=== PATIENT | female | born 1940 | race Caucasian/White ===

== ENCOUNTER 2018-03-01 17:11 | Inpatient (IN) | payer OTHER ==
[~2018-03-01] VITALS: Ht 172.7 cm; Wt 90.7 kg
--- NOTE | ~2018-03-01 | EKG ---
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
[2018-03-01 17:35] VITALS: BP 113/62
[2018-03-01 18:50] LABS: ABSOLUTE NEUTROPHILS 3.1 thou/uL (1.4-8.2); EOSINOPHILS 1.2 % (0.0-3.0); HEMATOCRIT 42.3 % (37.0-47.0); HEMOGLOBIN 14.4 gm/dL (12.0-15.0); LYMPHOCYTES 21.5 % (24.0-44.0); MCH 32.3 pg (26.0-34.0); MCHC 33.9 g/dL (28.0-37.0); MCV 95.1 fL (80.0-100.0); MONOCYTES 7.3 % (1.0-8.0); RBC 4.44 mil/uL (4.20-5.00); RDW 14.3 % (10.5-14.5); WBC 4.6 thou/uL (4.0-11.0)
[2018-03-01 18:57] LABS: ANION GAP 7 mmol/L (7-16); BUN 14 mg/dL (7-18); CALCIUM 8.7 mg/dL (8.5-10.1); CHLORIDE 108 mmol/L (98-107); CO2 27 mmol/L (21-32); GLUCOSE 88 mg/dL (74-106); SODIUM 142 mmol/L (136-145)
[2018-03-01 19:06] LABS: ALBUMIN 3.6 g/dL (3.4-5.0); SGOT 49 U/L (15-37); SGPT 51 U/L (30-65); TOTAL PROTEIN 7.5 g/dL (6.4-8.2); TROPONIN-I < 0.04 ng/mL (<0.06)
[2018-03-01 19:16] LABS: LARGE PLATELETS FEW; PLATELET COUNT 68 thou/uL (150-400)
[2018-03-01 20:57] VITALS: BP 124/66
[2018-03-01] MEDS ORDERED: XANAX 0.25 MG0.25 MG PO (21:53)
[2018-03-01] MEDS ORDERED: ALDACTONE50 MG PO (21:54)
[2018-03-01] MEDS ORDERED: KEPPRA 500 MG500 M1 PO (21:55)
[2018-03-01] MEDS ORDERED: ESTRADIOL42.5 GM VAG (21:56)
[2018-03-01] MEDS ORDERED: NOVOLOG FL100 UNIT/M SUBQ (21:57)
[2018-03-01] MEDS ORDERED: TOPROL XL25 MG PO (21:58)
[2018-03-01] MEDS ORDERED: XIFAXAN550 M1 PO (21:59)
[2018-03-01] MEDS ORDERED: TOUJEO SOL300 UNIT/1 SUBQ (22:00)
[2018-03-01] MEDS ORDERED: SYNTHROID100 MC1 PO (22:00)
[2018-03-01 22:02] VITALS: BP 108/58
[2018-03-01] MEDS ORDERED: SIMVASTATIN10 MG PO (22:03)
[2018-03-01] MEDS ORDERED: LASIX 20 MG TAB20 MG PO (22:05)
[2018-03-01] MEDS ORDERED: KLOR-CON 1010 MEQ PO (22:05)
[2018-03-01] MEDS ORDERED: FARXIGA5 MG PO (22:08)
[2018-03-01] MEDS ORDERED: JARDIANCE10 MG PO (22:10)
[2018-03-01] MEDS ORDERED: NYSTATIN15 G3 TOP (22:12)
[2018-03-01] MEDS ORDERED: ALBUTEROL2.5 MG/31 INH (22:13)
[2018-03-01] MEDS ORDERED: CETIRIZINE HCL5 MG PO (22:15)
[2018-03-01] MEDS ORDERED: ZINC50 M1 PO (22:16)
[2018-03-01] MEDS ORDERED: TYLENOL325 MG PO (22:17)
[2018-03-01] MEDS ORDERED: TYLENOL EXTRA500 MG PO (22:18)
[2018-03-01] MEDS ORDERED: ANTIVERT25 MG PO (22:19)
[2018-03-01] MEDS ORDERED: PERCOCET PO (22:21)
[2018-03-01] MEDS ORDERED: LACTULOSE10 GM/152 PO (22:22)
[2018-03-02 01:34] LABS: URINE BILIRUBIN NEGATIVE (Negative); URINE BLOOD NEGATIVE (Negative); URINE CLARITY CLEAR; URINE COLOR YELLOW; URINE GLUCOSE-RANDOM* 3+ (Negative); URINE KETONES NEGATIVE (Negative); URINE NITRITE-REFLEX NEGATIVE (Negative); URINE PROTEIN (DIPSTICK) NEGATIVE (Negative); URINE UROBILINOGEN 0.2 E.U./dl (0.2-1.0)
[2018-03-02 01:35] LABS: URINE LEUKOCYTES-REFLEX TRACE (Negative)
[2018-03-02 04:00] VITALS: BP 101/66
[2018-03-02 06:17] LABS: CHOLESTEROL 99 mg/dL (<200); HDL CHOLESTEROL 47 mg/dL (>40); LDL CHOLESTEROL 38 mg/dL (<100); TC:HDL 2.1 Ratio (Not establshd); TRIGLYCERIDE 72 mg/dL (<150); VLDL 14 mg/dL (<40)
[2018-03-02 07:26] VITALS: BP 100/54
[2018-03-02] MEDS ORDERED: PANTOPRAZOLE SO40 M1 PO ×2 (12:25→14:30)
[2018-03-02 14:04] VITALS: BP 100/54
[2018-03-02 16:09] VITALS: BP 115/55
[2018-03-03 01:10] LABS: GLYCOHEMOGLOBIN (HGB A1C) 5.6 % (4.8-5.6)
== END 2018-03-02 17:39 | disposition home or self-care (01) | DRG 381 ==
LOC: ER 17:11 → 4W 20:29 → EROBS 20:29 → 4W 20:58 → ENTRNSPT 03-02 17:26 → 4W 03-02 17:39
PROVIDERS: Emergency Medicine; Nurse Practitioner Acute Care
PROC: 0DJ08ZZ Inspection of Upper Intestinal Tract, Via Natural or Artificial Opening Endoscopic (ICD-10-PCS; principal; 2018-03-02)
DX: K22.10 Ulcer of esophagus without bleeding (principal); I85.00 Esophageal varices without bleeding; K76.6 Portal hypertension; R07.9 Chest pain, unspecified; K74.60 Unspecified cirrhosis of liver; E11.9 Type 2 diabetes mellitus without complications; E03.9 Hypothyroidism, unspecified; I10 Essential (primary) hypertension; G40.909 Epilepsy, unspecified, not intractable, without status epilepticus; R13.10 Dysphagia, unspecified; D69.6 Thrombocytopenia, unspecified; F80.82 Social pragmatic communication disorder; K72.90 Hepatic failure, unspecified without coma; K31.89 Other diseases of stomach and duodenum; Z87.01 Personal history of pneumonia (recurrent); Z90.49 Acquired absence of other specified parts of digestive tract; Z90.710 Acquired absence of both cervix and uterus; Z79.899 Other long term (current) drug therapy; Z79.4 Long term (current) use of insulin; Z88.0 Allergy status to penicillin; Z88.8 Allergy status to other drugs, medicaments and biological substances; Z88.2 Allergy status to sulfonamides; Z91.040 Latex allergy status; Z91.018 Allergy to other foods
CPT/HCPCS: 10040; 62110; 62900; 70005

== ENCOUNTER 2018-10-11 22:25 | Emergency (ER) | payer OTHER ==
[~2018-10-11] VITALS: Ht 172.7 cm; Wt 92.5 kg
[~2018-10-11 22:25] MED LIST: ALBUTEROL2.5 MG/31 INH; ALDACTONE50 MG PO; ANTIVERT25 MG PO; CETIRIZINE HCL5 MG PO; ESTRADIOL42.5 GM VAG; FARXIGA5 MG PO; JARDIANCE10 MG PO; KEPPRA 500 MG500 M1 PO; KLOR-CON 1010 MEQ PO; LACTULOSE10 GM/152 PO; LASIX 20 MG TAB20 MG PO; NOVOLOG FL100 UNIT/M SUBQ; NYSTATIN15 G3 TOP; PANTOPRAZOLE SO40 M1 PO; PERCOCET PO; SIMVASTATIN10 MG PO; SYNTHROID100 MC1 PO; TOPROL XL25 MG PO; TOUJEO SOL300 UNIT/1 SUBQ; TYLENOL EXTRA500 MG PO; TYLENOL325 MG PO; XANAX 0.25 MG0.25 MG PO; XIFAXAN550 M1 PO; ZINC50 M1 PO
[2018-10-11] MEDS ORDERED: MAGOX 400400 MG PO (22:32)
[2018-10-11] MEDS ORDERED: MULTI VITAMIN1 EACH PO (22:34)
[2018-10-11] MEDS ORDERED: [UNRECOGNIZED DRUG - OTHER] PO (22:34)
[2018-10-11] MEDS ORDERED: TOUJEO SOL300 UNIT/1 SUBQ (22:36)
[2018-10-11] MEDS ORDERED: VITAMIN D35000 UNIT PO (22:37)
[2018-10-11] MEDS ORDERED: XIFAXAN550 M1 PO (22:37)
[2018-10-11 23:49] LABS: HEMATOCRIT 38.9 % (37.0-47.0); HEMOGLOBIN 13.2 gm/dL (12.0-15.0); MCH 31.9 pg (26.0-34.0); MCHC 33.8 g/dL (28.0-37.0); MCV 94.6 fL (80.0-100.0); RBC 4.12 mil/uL (4.20-5.00); RDW 13.6 % (10.5-14.5); WBC 2.6 thou/uL (4.0-11.0)
[2018-10-11 23:55] LABS: ANION GAP 6 mmol/L (7-16); BUN 18 mg/dL (7-18); CALCIUM 8.8 mg/dL (8.5-10.1); CHLORIDE 104 mmol/L (98-107); CO2 30 mmol/L (21-32); CREATININE 1.1 mg/dL (0.6-1.0); GLUCOSE 105 mg/dL (74-106); POTASSIUM 4.4 mmol/L (3.5-5.1); SODIUM 140 mmol/L (136-145)
[2018-10-12 00:04] LABS: ALBUMIN 3.3 g/dL (3.4-5.0); SGOT 47 U/L (15-37); SGPT 47 U/L (30-65); TOTAL BILIRUBIN 0.6 mg/dL (<0.1-1.0); TOTAL PROTEIN 7.2 g/dL (6.4-8.2); TROPONIN-I <0.06 ng/mL (<0.06)
[2018-10-12 00:39] LABS: PLATELET COUNT 56 thou/uL (150-400)
[2018-10-12 00:43] LABS: ABSOLUTE NEUTROPHILS 1.6 thou/uL (1.4-8.2); PLATELET ESTIMATE DECREASED
[2018-10-12] MEDS ORDERED: MUCINEX DM ER1 EACH PO (00:43)
[2018-10-12] MEDS ORDERED: ALBUTEROL2.5 MG/31 INH (00:43)
[2018-10-12 01:02] VITALS: BP 94/56
--- NOTE | 2018-10-12 08:02 | EKG ---
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
== END 2018-10-12 01:03 | disposition home or self-care (01) ==
LOC: ER 22:25
PROVIDERS: Student in an Organized Health Care Education/Training Program
DX: J06.9 Acute upper respiratory infection, unspecified (principal); E03.9 Hypothyroidism, unspecified; I10 Essential (primary) hypertension; D64.9 Anemia, unspecified; Z88.0 Allergy status to penicillin; Z88.1 Allergy status to other antibiotic agents; Z88.2 Allergy status to sulfonamides; Z91.040 Latex allergy status